=== PATIENT | female | born 1965 | race Caucasian/White ===

== ENCOUNTER 2018-07-14 18:27 | Emergency (ER) | payer MEDICAID, OTHER ==
[2018-07-14] MEDS: ACETAMINOPHEN 500 MG TAB PO (20:45)
== END 2018-07-14 20:56 | disposition home or self-care (01) ==
LOC: FTE 18:27
DX: R04.0 Epistaxis (principal); E03.9 Hypothyroidism, unspecified; I10 Essential (primary) hypertension; J45.909 Unspecified asthma, uncomplicated
CPT/HCPCS: 99282; Z7502